=== PATIENT | female | born 1970 | race Caucasian/White ===

== ENCOUNTER 2017-05-26 17:42 | Inpatient (IN) | payer OTHER, MEDICAID ==
[~2017-05-26] VITALS: Ht 157.5 cm; Wt 100.2 kg
[~2017-05-26 17:42] MED LIST: AMOXICILLIN500 M1 PO; BIAXIN500 MG PO; EXCEDRIN CAPLE1 EACH PO; MEDROLDOSEPACK PO; MUCINEX DM ER1 EAC1 PO; NOHOMEMEDICATIONS; PERCOCET 5-3251 EACH PO; PREDNISONE 20 M20 M1 PO; PROAIR HFA8.5 GM INH; VENTOLIN17 GM INH; VICODIN ES TAB1 EACH PO
[2017-05-26 17:49] VITALS: BP 140/70
[2017-05-26 18:52] LABS: INFLUENZA A ANTIGEN None Detected (None Detect); INFLUENZA B ANTIGEN None Detected (None Detect)
[2017-05-26 19:22] LABS: HEMATOCRIT 39.2 % (37.0-47.0); MCH 28.9 pg (26.0-34.0); MCHC 33.1 g/dL (28.0-37.0); MCV 87.3 fL (80.0-100.0); MPV 8.4 fl. (7.2-11.1); NUCLEATED RBCS 0 /100WBC; PLATELET COUNT* 252 thou/uL (150-400); RBC 4.49 mil/uL (4.20-5.00); RDW-CV 12.8 % (10.5-14.5); WBC 20.2 thou/uL (4.0-11.0)
[2017-05-26 19:29] LABS: CALCIUM 8.9 mg/dL (8.5-10.1); CREATININE 0.9 mg/dL (0.6-1.3); POTASSIUM 3.6 mmol/L (3.5-5.1)
[2017-05-26 19:34] LABS: TOTAL BILIRUBIN 0.4 mg/dL (<0.1-1.0); TOTAL PROTEIN 7.1 g/dL (6.4-8.2)
[2017-05-26 20:18] LABS: ABSOLUTE MONOCYTES 0.4 thou/uL (0.0-1.2); ABSOLUTE NEUTROPHILS 17.8 thou/uL (1.6-8.1); MYELOCYTES 1 %; PLATELET ESTIMATE ADEQUATE; POLYCHROMASIA Occasional
[2017-05-26 20:19] LABS: MACROCYTES Occasional
[2017-05-26 21:06] VITALS: BP 112/63
[2017-05-26 21:25] VITALS: BP 106/58
[2017-05-27 09:56] VITALS: BP 100/55
[2017-05-27 10:09] LABS: HEMATOCRIT 35.8 % (37.0-47.0); HEMOGLOBIN 11.8 gm/dL (12.0-15.0); MCH 29.2 pg (26.0-34.0); MCHC 33.1 g/dL (28.0-37.0); MCV 88.4 fL (80.0-100.0); RBC 4.05 mil/uL (4.20-5.00); RDW-CV 13.1 % (10.5-14.5); WBC 18.2 thou/uL (4.0-11.0)
[2017-05-27 10:22] LABS: CALCIUM 8.4 mg/dL (8.5-10.1); MAGNESIUM 2.1 mg/dL (1.8-2.4); POTASSIUM 4.1 mmol/L (3.5-5.1)
[2017-05-27 16:13] VITALS: BP 100/49
[2017-05-27 21:00] VITALS: BP 127/63
[2017-05-28 04:11] LABS: ABSOLUTE LYMPHOCYTES 1.9 thou/uL (0.8-5.3); ABSOLUTE MONOCYTES 1.2 thou/uL (0.0-1.2); ABSOLUTE NEUTROPHILS 20.3 thou/uL (1.6-8.1); BASOPHILS 0.1 %; HEMATOCRIT 34.5 % (37.0-47.0); HEMOGLOBIN 11.4 gm/dL (12.0-15.0); LYMPHOCYTES 8.1 %; MONOCYTES 5.3 %; MPV 9.1 fl. (7.2-11.1); NUCLEATED RBCS 0 /100WBC; PLATELET COUNT* 243 thou/uL (150-400); POLYS 86.5 %; RBC 3.92 mil/uL (4.20-5.00); RDW-CV 12.8 % (10.5-14.5); WBC 23.5 thou/uL (4.0-11.0)
[2017-05-28 04:11] LABS: GLYCOHEMOGLOBIN (HGB A1C) 6.3 % (4.8-5.6)
[2017-05-28 08:05] VITALS: BP 99/39
[2017-05-28 20:45] VITALS: BP 112/58
[2017-05-29 00:07] VITALS: BP 108/54
[2017-05-29 08:00] VITALS: BP 112/63
[2017-05-29 16:00] VITALS: BP 112/93
[2017-05-29 20:15] VITALS: BP 111/53
[2017-05-30 08:00] VITALS: BP 124/46
[2017-05-30 15:30] VITALS: BP 117/62
[2017-05-30 22:00] VITALS: BP 100/60
[2017-05-31 01:00] VITALS: BP 104/54
[2017-05-31 08:15] VITALS: BP 107/59
[2017-05-31] MEDS ORDERED: CEFDINIR300 MG PO (09:20)
[2017-05-31] MEDS ORDERED: AZITHROMYCIN 2250 MG PO (09:20)
[2017-05-31] MEDS ORDERED: PREDNISONE 10 M10 MG PO (09:20)
[2017-05-31 09:39] VITALS: BP 107/59
[2017-05-31 10:27] VITALS: BP 107/59
--- NOTE | 2017-05-31 11:54 | CON ---
[address] [address] CONSULTATION Name: ALYSSA GARCIA Room: [address] ADM IN M.R.#: [id number] Admission: 05/26/17 Attend Phys: Conrad Magana MD Discharge: Date of : 70 Report #: [id number] THIS REPORT FOR: //name// CC: [facility] physician/PCP Conrad Magana REQUESTING PHYSICIAN: Crispin Griffin MD REASON FOR CONSULTATION: Asthma exacerbation infiltrates. DISCUSSION: The patient is a 47-year-old woman with a history of asthma and ongoing tobacco abuse. She presented to the Emergency Department here on 05/26/2017. She was having more trouble with her breathing and was febrile. She is coughing a lot bringing up some secretions. About a week prior to that, she had been seen in the ED at [place]. Per her account, she had presented with increased cough, shortness of breath. X-ray done there was reportedly unremarkable. Apparently also check some lab. She was given prescriptions for steroid taper and albuterol inhaler. However, she could not afford the inhaler and did take the steroids. It was starting at 60 mg per day. It did make her quite nervous. She was not improving with that and presented to the ED here as noted. When seen in the ED, she was noted to be bronchospastic and elevated white count. Chest x-ray did show bilateral infiltrates. She was started on antibiotics, steroids and regular bronchodilator regimen. She has also had a CT scan done of her chest on 05/28/2017, show changes of old calcified granulomas disease; however, did have bilateral infiltrates seen. Much of these were ground glass opacities. No significant pleural effusions. No worrisome masses. Did have some mildly enlarged mediastinal nodes which were thought to be reactive. Blood cultures sent on admission were negative. She has been on O2. She had some low grade fevers when she was first admitted, she has been afebrile now the last 2 days. Subjectively, she is feeling somewhat better at this time. She has a long history of tobacco abuse. Still smoking at least a pack to a pack and a half of cigarettes per day. However, she notes recently it was causing her lungs to burn. She does not use any other type of drugs. 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 She was also evaluated by the [facility] when she was in her 20s as her father was diagnosed with tuberculosis. She was found to be negative and did not require any medications at that time. She has not had any dental work done in many years. She denies any syncopal episodes. She just recently had left a homeless fdc where she has been for about a month. Was then living in a car for several days and had some friends she apparently get a room. She is not aware of any exposure to anyone else who has been ill recently. No recent exposure to anyone with tuberculosis. At the time I saw her today, she is feeling better relative to what she was. Her GI symptoms that she had on admission such as diarrhea and abdominal [address] [place] [address] CONSULTATION Name: ALYSSA GARCIA Room: [address] IN [facility].#: [id number] Admission: 05/26/17 Attend Phys: Conrad Magana MD Discharge: Date of : 70 Report #: [id number] discomfort have improved. Her breathing is better, though she still gets winded. Still having some cough. MEDICATIONS: Currently, at this time, she is on azithromycin by mouth, cefdinir by mouth, methylprednisolone 62.5 mg every 8 hours, Mucinex 1200 mg twice a day, Pepcid, fluconazole IV, DuoNeb every 4 hours. PAST MEDICAL AND SURGICAL HISTORY: Besides her asthma and COPD is remarkable for prior hysterectomy, cholecystectomy, C-sections, appendectomy, surgery on her right wrist. FAMILY HISTORY: Positive for TB in her father as noted. She is not aware of any other lung disease in her family. Not aware of any heart disease. REVIEW OF SYSTEMS: ROS was done. Note positives as above. She denies any hemoptysis, chest pain or blood in her stools. She was having frequent stools. When she would cough, she would be incontinent of stool that has improved. Denies any syncopal episodes. No skin rashes. May have had some mild swelling of her lower extremities. PHYSICAL EXAMINATION: GENERAL APPEARANCE: The patient is a woman who looks older than her stated age. She is resting in bed with O2 and is in no acute distress. HEENT: Head is normocephalic. Sclerae nonicteric. Dentition is quite poor. She is missing a fair number of teeth. NECK: Negative for adenopathy. No JVD is noted. No supraclavicular adenopathy. HEART: Regular, though mildly tachycardic. No S3 is heard. LUNGS: Reveal breath sounds to be diminished. She has a prolonged expiratory phase. She does have few scattered expiratory wheezes heard. Does have rhonchi. With a deep breath, it does trigger some cough. She has no CVA tenderness. ABDOMEN: Soft without appreciable hepatosplenomegaly. There is no guarding or rebound tenderness noted. EXTREMITIES: Lower extremities are thin. No definite edema is noted. No calf tenderness. NEUROLOGIC: She is alert and oriented x 3. LABORATORY AND X-RAY FINDINGS: A CT chest was reviewed. It was done several days ago as noted. Does have changes, all consistent with old granulomatous disease. Bilateral infiltrates seen primarily in the upper lobes. She has had "ground glass opacities." No pleural effusions are noted. Blood cultures done on admission are negative. Urine for legionella and strep pneumonia antigen are negative. White blood cell count on admission 20,200; 2 days ago 23,500; hemoglobin 11.5, hematocrit 34.5, platelets are normal. No increasing eosinophils. Did have a left shift. Influenza screen [place] [id number] CONSULTATION Name: ALYSSA GARCIA Room: [address] IN [facility].#: [id number] Admission: 05/26/17 Attend Phys: Conrad Magana MD Discharge: Date of : 70 Report #: [id number] morning is 25. Mycoplasma titer is pending. T spot is pending. Respiratory viral panel is pending as well. C. diff was negative. IMPRESSION: 1. Bilateral infiltrates, most likely pneumonia. May have started with a virus and getting secondary bacterial infection. Could also be related to her poor dental hygiene. She has also had a variety of exposures. Has been in a homeless fdc. Certainly increase her risk of exposure to other infectious diseases. Pattern on imaging is not highly consistent with tuberculosis. 2. Asthma/chronic obstructive pulmonary disease exacerbation. Remains bronchospastic. 3. Leukocytosis, some of this could be exacerbated by the steroids. RECOMMENDATIONS: 1. Follow up chest x-ray tomorrow. 2. Continue with the steroids and neb treatments. 3. Wean O2 as able. 4. Long-term certainly will be a problem. With the fact that she is homeless without means to pay for medications would make attempting to treat her underlying asthma and prevent exacerbations in the future a challenge. 5. Complete smoking cessation is certainly imperative. <ELECTRONICALLY SIGNED> By: Matthew Hahn MD 05/31/17 [id number] Haskins MD /nt
[2017-05-31 12:53] VITALS: BP 107/59
[2017-06-01 21:13] LABS: MYCOPLASMA PNEUMONIA IgG <100 U/mL (0-99); MYCOPLASMA PNEUMONIA IgM <770 U/mL (0-769)
== END 2017-05-31 11:30 | disposition home or self-care (01) | DRG 871 ==
LOC: M.ERS 17:42 → M.ORTHSURG 19:50 → M.TBA-ER 19:50 → M.ORTHSURG 21:11
PROVIDERS: Family Medicine; Personal Emergency Response Attendant; Physician Assistant; ADMIT Internal Medicine
PROC: 05HC33Z Insertion of Infusion Device into Left Basilic Vein, Percutaneous Approach (ICD-10-PCS; principal; 2017-05-27)
DX: A41.9 Sepsis, unspecified organism (principal); J96.01 Acute respiratory failure with hypoxia; J15.9 Unspecified bacterial pneumonia; J45.901 Unspecified asthma with (acute) exacerbation; J44.1 Chronic obstructive pulmonary disease with (acute) exacerbation; Z68.41 Body mass index [BMI] 40.0-44.9, adult; J44.0 Chronic obstructive pulmonary disease with (acute) lower respiratory infection; F17.210 Nicotine dependence, cigarettes, uncomplicated; E66.9 Obesity, unspecified; R73.9 Hyperglycemia, unspecified; T38.0X5A Adverse effect of glucocorticoids and synthetic analogues, initial encounter; Z79.82 Long term (current) use of aspirin; Z79.899 Other long term (current) drug therapy; Z90.49 Acquired absence of other specified parts of digestive tract; Z90.710 Acquired absence of both cervix and uterus; Z88.6 Allergy status to analgesic agent

== ENCOUNTER 2017-07-08 10:29 | Emergency (ER) | payer OTHER, MEDICAID ==
[~2017-07-08] VITALS: Ht 157.5 cm; Wt 90.7 kg
[~2017-07-08 10:29] MED LIST changes: +AZITHROMYCIN 2250 MG PO; +CEFDINIR300 MG PO; +PREDNISONE 10 M10 MG PO
[2017-07-08] MEDS ORDERED: NORCO 5-325 TA1 EACH PO (11:56)
[2017-07-08 12:18] VITALS: BP 100/40
== END 2017-07-08 12:20 | disposition home or self-care (01) ==
LOC: M.ERS 10:29
DX: M25.551 Pain in right hip (principal); M25.561 Pain in right knee; J44.9 Chronic obstructive pulmonary disease, unspecified; F17.210 Nicotine dependence, cigarettes, uncomplicated; Z88.6 Allergy status to analgesic agent; Z90.49 Acquired absence of other specified parts of digestive tract; Z90.710 Acquired absence of both cervix and uterus